=== PATIENT | female | born 1960 | race Caucasian/White ===

== ENCOUNTER 2016-06-03 13:00 | Inpatient (IN) | payer OTHER ==
[~2016-06-03] VITALS: Ht 149.9 cm; Wt 63.0 kg
[2016-07-23] VITALS (29 sets, daily range): BP systolic 109–180; BP diastolic 55–105; PULSE 64–102; RESP 10–20; Ht 149.9 cm; Wt 63.0 kg
[2016-07-23] MEDS ORDERED: metroNIDAZOLE 500 MG/100 ML NS IVPB ONE (07:00)
[2016-07-23] MEDS ORDERED: CEFAZOLIN 1 GM INJ ONE (07:00)
[2016-07-23] MEDS ORDERED: DESFLURANE 15 MIN ONE (07:00)
[2016-07-23] MEDS ORDERED: METF500T4 PO (15:14)
[2016-07-23] MEDS ORDERED: PROM6.2514 PO (15:15)
[2016-07-23] MEDS ORDERED: BUPIVACAINE 0.5% ON-Q-PUMP 270 ML ONE (15:49)
--- NOTE | 2016-07-23 16:29 | HPN ---
Date/Time of Note Date/Time of Note DATE: 07/23/16 TIME: 16:28 Interval H&P Admission Note Pt. seen H&P reviewed: No system changes JOSE R HOPKINS M.D. Jul 23, 2016 16:29
[2016-07-23] MEDS ORDERED: FENTAnyl 50 MCG/ML VIAL ONE (16:43)
[2016-07-23] MEDS ORDERED: PROPOFOL 100 ML ONE (17:10)
[2016-07-23] MEDS ORDERED: NEOSTIGMINE 3 MG/3 ML SYRINGE ONE (17:10)
[2016-07-23] MEDS ORDERED: ROCURONIUM 50 MG INJ ONE (17:10)
[2016-07-23] MEDS ORDERED: SUCCINYLCHOLINE CHLORIDE 100 MG/5 ML SYG IV ONE (17:10)
[2016-07-23] MEDS ORDERED: GLYCOPYRROLATE 1 MG INJ ONE (17:10)
[2016-07-23] MEDS ORDERED: LIDOCAINE 2% (SDV) 5 ML INJ ONE (17:10)
[2016-07-23] MEDS ORDERED: BUPIVACAINE 0.5% (SDV) 30 ML INJ ONE (18:30)
[2016-07-23] MEDS ORDERED: ROPIVACAINE 0.5 % 30 ML VIAL ONE (18:41)
[2016-07-23] MEDS: LACTATED RINGER'S 1,000 ML IV SCH ×2 (18:50→22:46)
[2016-07-23] MEDS ORDERED: NALOXONE (0.4 MG/ML) INJ IV PRN (19:00)
[2016-07-23] MEDS ORDERED: DIPHENHYDRAMINE 50 MG INJ IV PRN ×2 (19:00→19:30)
[2016-07-23] MEDS ORDERED: CEPASTAT LOZENGE MT PRN (19:00)
[2016-07-23] MEDS ORDERED: ONDANSETRON 4 MG INJ IV PRN ×2 (19:00→19:30)
[2016-07-23] MEDS ORDERED: HYDROmorphONE (0.2 MG/ML) 10ML SYG IV ONE (19:17)
[2016-07-23] MEDS ORDERED: ONDANSETRON 4 MG INJ ONE (19:17)
[2016-07-23] MEDS ORDERED: METOCLOPRAMIDE 10 MG INJ IV PRN (19:30)
[2016-07-23] MEDS ORDERED: MEPERIDINE 25 MG INJ IV PRN (19:30)
[2016-07-23] MEDS ORDERED: HYDROmorphONE (0.2 MG/ML) 10ML SYG IV PRN ×2 (19:30)
[2016-07-23] MEDS ORDERED: FENTAnyl 50 MCG/ML VIAL IV PRN (19:30)
[2016-07-23] MEDS: HYDROmorphONE (0.2 MG/ML) 10ML SYG IV PRN ×2 (19:39→19:49)
[2016-07-23 19:46] LABS: ADD SCAN DIFF NO
[2016-07-23 19:47] LABS: BASOPHIL # 0.1 10^3/ul (0.0-0.1); BASOPHILS % 0.3 % (0.0-2.0); EOSINOPHILS % 0.2 % (0.0-7.0); HEMATOCRIT 36.2 % (37.0-47.0); HEMOGLOBIN 11.3 g/dl (12.0-16.0); LYMPHOCYTES # 1.9 10^3/ul (0.8-2.9); LYMPHOCYTES % 11.7 % (15.0-51.0); MEAN CORPUSCULAR HEMOGLOBIN 27.5 pg (29.0-33.0); MEAN CORPUSCULAR HGB CONC 31.2 g/dl (32.0-37.0); MEAN CORPUSCULAR VOLUME 88.1 fl (82.0-101.0); MEAN PLATELET VOLUME 9.2 fl (7.4-10.4); MONOCYTE # 0.8 10^3/ul (0.3-0.9); MONOCYTES % 4.8 % (0.0-11.0); NEUTROPHIL # 13.4 10^3/ul (1.6-7.5); NEUTROPHILS % 82.6 % (39.0-77.0); PLATELET COUNT 390 10^3/UL (140-415); RED BLOOD COUNT 4.11 10^6/ul (4.20-5.40); RED CELL DISTRIBUTION WIDTH 15.9 % (11.5-14.5); WHITE BLOOD COUNT 16.2 10^3/ul (4.8-10.8)
[2016-07-23] MEDS ORDERED: hydrALAzine 20 MG INJ IV PRN (20:00)
[2016-07-23] MEDS ORDERED: DEXTROSE 50% 50 ML SYRINGE IV PRN ×2 (20:00)
[2016-07-23] MEDS ORDERED: GLUCAGON 1 MG INJ IM PRN (20:00)
[2016-07-23] MEDS ORDERED: LABETALOL HCL 20MG INJ IV PRN (20:00)
[2016-07-23] MEDS ORDERED: GLUCOSE GEL 15 GRAM TUBE PO PRN ×2 (20:00)
[2016-07-23] MEDS ORDERED: GLUCOSE GEL 15 GRAM TUBE BUCCAL PRN (20:00)
[2016-07-23 20:07] LABS: ADD UMIC YES; URINE COLOR LT. YELLOW (YELLOW)
[2016-07-23 20:08] LABS: URINE BILIRUBIN (Dip) NEGATIVE (NEGATIVE); URINE BLOOD (Dip) 1+ (NEGATIVE); URINE GLUCOSE (Dip) NEGATIVE (NEGATIVE); URINE KETONES (Dip) 1+ (NEGATIVE); URINE NITRITE (Dip) NEGATIVE (NEGATIVE); URINE TOTAL PROTEIN (Dip) 1+ (NEGATIVE); URINE UROBILINOGEN (Dip) 0.2 E.U./dL (0.1-1.0)
[2016-07-23 20:09] LABS: URINE LEUKOCYTE ESTERASE (Dip) NEGATIVE (NEGATIVE)
[2016-07-23] MEDS: ACETAMINOPHEN 1000MG/100ML IV 100 ML IVPB SCH (20:10)
[2016-07-23 20:20] LABS: CALCIUM 8.6 mg/dl (8.4-10.2); CREATININE 0.69 mg/dl (0.44-1.00); POTASSIUM 3.4 mmol/L (3.5-5.1)
[2016-07-23 20:23] LABS: SQUAMOUS EPITHELIAL CELL,UR FEW
[2016-07-23] MEDS ORDERED: HYDROmorphONE 0.2 MG/ML PCA ONE (20:37)
[2016-07-23] MEDS: HYDROmorphONE 0.2 MG/ML PCA IV SCH (20:42)
--- NOTE | 2016-07-23 20:46 | OPR ---
DATE OF OPERATION: 07/23/2016 PROCEDURE PERFORMED: Abdominal rectopexy and sigmoid resection, placement of ON -Q pain pump, proctosigmoidoscopy. PREOPERATIVE DIAGNOSIS: Rectal prolapse. POSTOPERATIVE DIAGNOSIS: Rectal prolapse. SURGEON: Cy Bradley MD REINFORCER: Shabbir Gamino MD ANESTHESIOLOGIST: Mino Norris MD POSITION: Lithotomy. ESTIMATED BLOOD LOSS: Less than 50 mL. URINE OUTPUT: About 100 mL. FINDINGS: 1. Redundant sigmoid colon. 2. Mobile mesorectum. 3. Patulous anus. INDICATIONS: This is a 56-year-old woman who came to me after multiple perianal operations for hemorrhoids. On exam, the patient had full-thickness rectal prolapse. She had a patulous anus and incontinence. I discussed a perineal and abdominal approaches. The patient wanted the abdominal approach. I discussed the risks and benefits of an abdominal rectopexy and sigmoid resection, proctosigmoidoscopy, including bleeding, infection, damage to surrounding structures, fecal incontinence, recurrence, leak. The patient was agreeable to the procedure. The patient got medical clearance and we went to the OR. PROCEDURE IN DETAIL: After obtaining consent, the patient was brought to the operating room. After induction of general anesthesia, the patient was gently placed in the lithotomy position. SCDs were applied and a Mata catheter was placed under sterile conditions. The pressure points were carefully padded. We The patient was prepped and draped in the usual sterile fashion. I began by doing a Pfannenstiel incision over her old Pfannenstiel incision using a knife. The subcu tissues were taken down using electrocautery until the fascia was identified. The fascia was identified and incised crosswise. Then flaps were made superiorly and inferiorly using electrocautery. The midline was identified and sharply incised. Once we were inside the abdomen, there was no damage to the small bowel or any other structures. Using electrocautery, we incised up and down the midline. We then placed an Cheng wound protector. Using 2 warm lap pads we packed the small bowel and omentum into the right-upper quadrant. The sigmoid colon was obviously redundant. We found a point in the sigmoid that would make a good anastomosis to the rectum and we divided the colon using a Contour stapler. We identified the left ureter. We then, using a LigaSure Impact took down the mesentery to the top of the rectum. This was done right along the margin of the bowel. We then used the distal sigmoid and rectum as a handle and then got into the presacral space from the right side. Care was taken not to incise the superior rectal artery of the right ureter. Once we entered the presacral space using electrocautery, we dissected down to the tip of the coccyx. There was a small amount of blood but no active bleeding. A hole was made through the mesorectum to the left side so we could pass our stitch. We then identified the sacral promontory. Then we placed two 0 Vicryl sutures through it and placed them aside; one on the right side and one through the incision in the mesorectum to the left side. We then identified the top of the rectum so that it would fit snugly into the presacral space. We divided it using a Contour stapler. The sigmoid colon was passed to pathology. Hemostasis appeared achieved. We then went about doing our anastomosis. We used an automated pursestring device on the proximal portion and placed a 29 anvil from the EEA stapler. This was secured and then tucked away into the left -upper quadrant. Then Dr. Gamino went below. Dr. Gamino placed some sizers into the rectum and there appeared to be a valve keeping us from getting the stapler out. We incised some mesorectum and then used the Contour stapler to approximately 2 cm more of the rectum. We then easily placed EEA stapler to the end and was able to pass the spike at the staple line. I took the proximal end with the anvil down and easily attached it to the spike. The stapler was closed with any intervening tissue. The staple was fired. Dr. Gamino got 2 good donuts. He then placed an rigid sigmoidoscope in the patient's anus and I placed warm water into the pelvis. I clamped off the proximal sigmoid using fingers and Dr. Gamino was able to insufflate the rectum and sigmoid at anastomosis. He pumped it and there were no bubbles. He inspected and the anastomosis appeared to be complete with no obvious bleeding. He then removed the rigid sigmoidoscope and scrubbed back in. We then irrigated again and reexamined the pelvis. There was no obvious bleeding. We then replaced the omentum and took out the wound protector and began our closure. We closed the peritoneum using a running 2-0 Vicryl suture. We then placed a single ON-Q catheter through the fascia on the right side into the space between the anterior fascia and the muscle. We then closed the fascia using a 0 PDS, double-looped suture. We then irrigated the wound and closed the subcu tissues three interrupted 2-0Vicryl sutures. We then closed the skin using a 4- 0 Monocryl suture. We primed the ON-Q pump, attached the catheter and the procedure was terminated. The left ureter identified at the end of the case without damage. The patient tolerated the procedure well. The patient was extubated in the OR and transported to the PACU in good condition. I discussed the findings with the family. I called the hospitalist to follow the patient for medical issues. Dictated By: CY ROYAL/LEIGH Conf#: [id number] DID#: [id number] MTDD
[2016-07-23] MEDS: CEFAZOLIN 1 GM/50 ML (PMX) 50 ML IVPB SCH (22:10)
[2016-07-23] MEDS: INSULIN ASPART [NOVOLOG] 3 ML PEN SC SCH (22:38)
[2016-07-23] MEDS: metroNIDAZOLE 500 MG/NS (PMX) 100 ML IVPB SCH (22:44)
[2016-07-23] MEDS ORDERED: POTASSIUM CHLORIDE 20 MEQ in SOD CHLORIDE 0.9% 100 ML IVPB ONE (23:30)
[2016-07-24 00:05] VITALS: BP 141/62; PULSE 82; RESP 19
[2016-07-24] MEDS: ACCU-CHEK XX SCH (01:44)
[2016-07-24] MEDS: ACETAMINOPHEN 1000MG/100ML IV 100 ML IVPB SCH ×4 (01:45→20:18)
[2016-07-24] MEDS: LACTATED RINGER'S 1,000 ML IV SCH ×4 (02:50→20:19)
[2016-07-24 05:03] LABS: ADD SCAN DIFF NO
[2016-07-24 05:10] LABS: BASOPHILS % 0.1 % (0.0-2.0); HEMATOCRIT 32.9 % (37.0-47.0); HEMOGLOBIN 10.4 g/dl (12.0-16.0); LYMPHOCYTES # 0.7 10^3/ul (0.8-2.9); LYMPHOCYTES % 7.8 % (15.0-51.0); MEAN CORPUSCULAR HEMOGLOBIN 27.9 pg (29.0-33.0); MEAN CORPUSCULAR HGB CONC 31.6 g/dl (32.0-37.0); MEAN CORPUSCULAR VOLUME 88.2 fl (82.0-101.0); MEAN PLATELET VOLUME 9.6 fl (7.4-10.4); MONOCYTE # 0.5 10^3/ul (0.3-0.9); MONOCYTES % 5.8 % (0.0-11.0); NEUTROPHILS % 86.1 % (39.0-77.0); PLATELET COUNT 382 10^3/UL (140-415); RED BLOOD COUNT 3.73 10^6/ul (4.20-5.40); WHITE BLOOD COUNT 9.3 10^3/ul (4.8-10.8)
[2016-07-24 05:11] LABS: POTASSIUM 3.9 mmol/L (3.5-5.1)
[2016-07-24] MEDS: CEFAZOLIN 1 GM/50 ML (PMX) 50 ML IVPB SCH (05:12)
[2016-07-24 05:13] LABS: CREATININE 0.6 mg/dl (0.44-1.00)
[2016-07-24 05:14] LABS: CALCIUM 8.7 mg/dl (8.4-10.2)
[2016-07-24] MEDS: metroNIDAZOLE 500 MG/NS (PMX) 100 ML IVPB SCH (05:58)
--- NOTE | 2016-07-24 06:48 | CONS ---
DATE OF ADMISSION: 07/23/2016 DATE OF CONSULTATION: 07/23/2016 REASON FOR CONSULTATION: Medical management. The patient is a 56-year-old female with a history of asthma, diabetes, hysterectomy, and multiple p erianal surgeries for hemorrhoids, who was admitted status post sigmoid resection for rectal prolaps e. A consult was placed for medical management. Currently the patient looks comfortable, in fact i nitially she was sleeping but arousable. She stated her pain is controlled. She denied any chest p ain, no sign of asthma exacerbation. Denied shortness of breath, fever, chills. Her vitals are wit hin acceptable range. When she came in initially she had a WBC of 16,000, hemoglobin 11.3 and a pot assium of 3.4. Otherwise her basic CBC and BMP are within acceptable range. REVIEW OF SYSTEMS: A 12-point review of systems was performed and is negative except as mentioned i n the HPI. PAST MEDICAL HISTORY: As per HPI. PAST SURGICAL HISTORY: 1. Hysterectomy. 2. Multiple perianal surgeries for hemorrhoids. 3. She just had a sigmoid resection. SOCIAL HISTORY: Denied a history of tobacco, alcohol or illicit drug use. ALLERGIES: NO KNOWN DRUG ALLERGIES. HOME MEDICATIONS: 1. Metformin. 2. Promethazine. PHYSICAL EXAMINATION: VITAL SIGNS: Stable. GENERAL: In no acute distress, initially sleeping but arousable. Looks comfortable. HEENT: No obvious head deformity. Pupils are reactive to light. Extraocular muscles intact. CARDIOVASCULAR: Regular rate and rhythm. No extra sounds. LUNGS: Clear anteriorly. ABDOMEN: Soft. There is some discomfort to deep palpation diffusely, but without guarding, rebound tenderness or rigidity. EXTREMITIES: No edema. LABORATORY: Pertinent positives as mentioned in the HPI. IMPRESSION: 1. Rectal prolapse, status post sigmoid resection. 2. Diabetes. 3. History of asthma. 4. Leukocytosis. 5. Mild hypokalemia. 6. Normocytic anemia. PLAN: Will continue her current medical management, including her antibiotic and pain management. C ontinue insulin while in-house for her diabetes. Will correct electrolytes as needed and as such, s he will receive a dose of potassium. Follow up hemoglobin closely post-surgery. Will send a ferrit in and iron profile to see if she has iron deficiency. Currently no sign of asthma exacerbation, bu t she will receive breathing treatments as needed Further workup and management will be per clinical course. Dictated By: JOSE R PLAZA/LEIGH Conf#: [id number] DID#: [id number]
[2016-07-24 07:00] VITALS: BP 116/59; RESP 18
[2016-07-24 07:07] LABS: IRON 30 ug/dl (35-150)
[2016-07-24 07:16] LABS: TOTAL IRON BINDING CAPACITY 416 ug/dl (241-421)
[2016-07-24] MEDS: INSULIN ASPART [NOVOLOG] 3 ML PEN SC SCH ×4 (07:50→21:00)
[2016-07-24] MEDS ORDERED: ENOXAPARIN 40 MG/0.4 ML SYG SC SCH (09:00)
--- NOTE | 2016-07-24 09:03 | PN ---
Date/Time of Note Date/Time of Note DATE: 07/24/16 TIME: 08:58 Assessment/Plan VTE Prophylaxis VTE Prophylaxis Intervention: ambulation, LMWH Lines/Catheters IV Catheter Type (from Nrsg): Peripheral IV Urinary Cath still in place: Yes Reason Cath still needed: other (indicate) (To remove today if ambulatory) Assessment/Plan Chief Complaint/Hosp Course 55YO Woman h/o rectal prolapse s/p abdominal rectopexy and sigmoid resection now POD1. Doing well, denies CP/SOB/F/C/NV. No BM/F yet. Wants to drink and walk. On exam, appears well, VS OK, labs OK (Hct 33, was anemia and has been on IVF - good urine output, no peritoneal signs, very unlikely bleeding), abdomen soft, appropriately TTP at wound, ONQ in place. Plan is clear liquid diet, OOB, browne removed if ambulatory, start Lovenox and Toradol. Wean IVF if tolerating clears. Appreciate medicine following. Problems: Subjective 24 Hr Interval Summary Free Text/Dictation Pt POD1 abdominal rectopexy, sigmoid resection. Doing well. Denies NV/CP/SOB/F /C. Reports abdominal pain controlled with pain meds. Not OOB yet. No BM/F. Wants to walk and drink. Respiratory: no complaints Cardiovascular: no complaints Gastrointestinal: pain Exam/Review of Systems Vital Signs Vitals Vital Signs Date Time Temp Pulse Resp B/P Pulse Ox O2 Delivery O2 Flow Rate FiO2 07/24/16 07:00 97.5 78 18 116/59 98 07/24/16 00:05 Nasal Cannula 1.0 Intake and Output 07/23/16 07/23/16 07/24/16 15:00 23:00 07:00 Intake Total 1865 ml 866 ml Output Total 140 ml 500 ml Balance 1725 ml 366 ml Exam Constitutional: alert, oriented Respiratory: clear to auscultation Cardiovascular: regular rate and rhythm Gastrointestinal: soft, tender (appropriate; wound C/D/I, ONQ in place) Results Result Diagram: 07/24/16 0415 07/24/16 0415 Results 24 hrs Laboratory Tests Test 07/23/16 16:13 07/23/16 19:03 07/23/16 19:40 07/23/16 20:51 Bedside Glucose 95 164 Urine Color LT. YELLOW Urine Clarity CLEAR Urine pH 6.5 Urine Specific [place] 1.015 Urine Ketones 1+ H Urine Nitrite NEGATIVE Urine Bilirubin NEGATIVE Urine Urobilinogen 0.2 E.U./dL Urine Leukocyte Esterase NEGATIVE Urine Microscopic RBC 2-5 Urine Microscopic WBC 0-2 Urine Squamous Epithelial Cells FEW Urine Hemoglobin 1+ H Urine Glucose NEGATIVE Urine Total Protein 1+ H White Blood Count 16.2 H Red Blood Count 4.11 L Hemoglobin 11.3 L Hematocrit 36.2 L Mean Corpuscular Volume 88.1 Mean Corpuscular Hemoglobin 27.5 L Mean Corpuscular Hemoglobin Concent 31.2 L Red Cell Distribution Width 15.9 H Platelet Count 390 Mean Platelet Volume 9.2 Neutrophils % 82.6 H Lymphocytes % 11.7 L Monocytes % 4.8 Eosinophils % 0.2 Basophils % 0.3 Nucleated Red Blood Cells % 0.0 Neutrophils # 13.4 H Lymphocytes # 1.9 Monocytes # 0.8 Eosinophils # 0.0 Basophils # 0.1 Nucleated Red Blood Cells # 0.0 Sodium Level 138 Potassium Level 3.4 L Chloride Level 102 Carbon Dioxide Level 28 Anion Gap 11 Blood Urea Nitrogen 8 Creatinine 0.69 Glucose Level 166 Calcium Level 8.6 Test 07/23/16 22:14 07/24/16 01:44 07/24/16 04:15 07/24/16 07:54 Bedside Glucose 190 160 127 White Blood Count 9.3 # Red Blood Count 3.73 L Hemoglobin 10.4 L Hematocrit 32.9 L Mean Corpuscular Volume 88.2 Mean Corpuscular Hemoglobin 27.9 L Mean Corpuscular Hemoglobin Concent 31.6 L Red Cell Distribution Width 16.0 H Platelet Count 382 Mean Platelet Volume 9.6 Neutrophils % 86.1 H Lymphocytes % 7.8 L Monocytes % 5.8 Eosinophils % 0.0 Basophils % 0.1 Nucleated Red Blood Cells % 0.0 Neutrophils # 8.0 H Lymphocytes # 0.7 L Monocytes # 0.5 Eosinophils # 0.0 Basophils # 0.0 Nucleated Red Blood Cells # 0.0 Sodium Level 137 Potassium Level 3.9 Chloride Level 101 Carbon Dioxide Level 28 Anion Gap 12 Blood Urea Nitrogen 9 Creatinine 0.60 Glucose Level 135 Calcium Level 8.7 Iron Level 30 L Total Iron Binding Capacity 416 Percent Iron Saturation 7 L Ferritin 7.4 L Medications Medications Current Medications Diphenhydramine HCl (Benadryl) 25 mg Q6H PRN IV ITCHING Last administered on 23:53; Admin Dose 25 MG; Start 07/23/16 at 19:00 Ondansetron HCl 4 mg 4 mg Q6H PRN IV NAUSEA AND/OR VOMITING; Start 07/23/16 at 19:00 Lactated Ringer's (Lr) 1,000 ml @ 125 mls/hr Q8H IV Last administered on 22:46; Admin Dose 125 MLS/HR; Start 07/23/16 at 18:50 Phenol (Cepastat Lozenge) 1 lozenge PRN PRN MT SORE THROAT; Start 07/23/16 at 19:00 Naloxone HCl (Narcan) 0.2 mg Q2M PRN IV RR 8 BREATHS/MIN OR LESS; Start at 19:00 Hydromorphone HCl (Dilaudid CHARTER PILOT) Q4PCA IV Last administered on 07/23/16 20:42 ; Admin Dose 6 MG; Start 07/23/16 at 19:00 Diagnostic Test (Pha) 1 ea 1 ea 02 XX Last administered on 07/24/16 01:44; Admin Dose 1 EA; Start 07/24/16 at 02:00 Acetaminophen (Ofirmev 1000mg/ 100ml Iv) 100 ml @ 400 mls/hr Q6H IVPB Last administered on 07/24/16 08:40; Admin Dose 400 MLS/HR; Start 07/23/16 at 19:30 Miscellaneous Information 1 ea NOTE XX ; Start 07/23/16 at 20:00 Glucose (Glutose) 15 gm Q15M PRN PO DECREASED GLUCOSE; Start 07/23/16 at 20:00 Glucose (Glutose) 22.5 gm Q15M PRN PO DECREASED GLUCOSE; Start 07/23/16 at 20: 00 Dextrose (D50w Syringe) 25 ml Q15M PRN IV DECREASED GLUCOSE; Start 07/23/16 at 20:00 Dextrose (D50w Syringe) 50 ml Q15M PRN IV DECREASED GLUCOSE; Start 07/23/16 at 20:00 Glucagon (Glucagen) 1 mg Q15M PRN IM DECREASED GLUCOSE; Start 07/23/16 at 20:00 Glucose (Glutose) 15 gm Q15M PRN BUCCAL DECREASED GLUCOSE; Start 07/23/16 at 20 :00 Enoxaparin Sodium (Lovenox) 40 mg DAILY SC ; Start 07/24/16 at 09:00; Status UNV Ketorolac Tromethamine (Toradol) 15 mg Q6H PRN IV PAIN; Start 07/24/16 at 09:00 ; Stop 07/27/16 at 08:59; Status UNV JOSE R HOPKINS M.D. Jul 24, 2016 09:03
[2016-07-24] MEDS: HYDROmorphONE 0.2 MG/ML PCA IV SCH (16:34)
[2016-07-24 19:55] VITALS: BP 134/78; RESP 18
[2016-07-24] MEDS: FERROUS SULFATE (EC) 325 MG TAB PO SCH (21:39)
[2016-07-25] MEDS: ACCU-CHEK XX SCH ×2 (00:02→08:25)
[2016-07-25] MEDS: ACETAMINOPHEN 1000MG/100ML IV 100 ML IVPB SCH (02:03)
[2016-07-25] MEDS: LACTATED RINGER'S 1,000 ML IV SCH (02:04)
[2016-07-25 05:50] LABS: ADD SCAN DIFF NO
[2016-07-25 05:53] LABS: BASOPHILS % 0.6 % (0.0-2.0); EOSINOPHILS # 0.2 10^3/ul (0.0-0.5); EOSINOPHILS % 3.3 % (0.0-7.0); HEMATOCRIT 30.1 % (37.0-47.0); HEMOGLOBIN 9.4 g/dl (12.0-16.0); LYMPHOCYTES # 1.6 10^3/ul (0.8-2.9); LYMPHOCYTES % 23.2 % (15.0-51.0); MEAN CORPUSCULAR HEMOGLOBIN 27.6 pg (29.0-33.0); MEAN CORPUSCULAR HGB CONC 31.2 g/dl (32.0-37.0); MEAN CORPUSCULAR VOLUME 88.3 fl (82.0-101.0); MEAN PLATELET VOLUME 9.8 fl (7.4-10.4); MONOCYTE # 0.6 10^3/ul (0.3-0.9); MONOCYTES % 8.3 % (0.0-11.0); NEUTROPHIL # 4.6 10^3/ul (1.6-7.5); NEUTROPHILS % 64.3 % (39.0-77.0); PLATELET COUNT 369 10^3/UL (140-415); RED BLOOD COUNT 3.41 10^6/ul (4.20-5.40); RED CELL DISTRIBUTION WIDTH 16.4 % (11.5-14.5); WHITE BLOOD COUNT 7.1 10^3/ul (4.8-10.8)
[2016-07-25 06:08] LABS: CALCIUM 8.6 mg/dl (8.4-10.2); CREATININE 0.55 mg/dl (0.44-1.00); POTASSIUM 3.5 mmol/L (3.5-5.1)
[2016-07-25 07:00] VITALS: BP 139/70; RESP 18
[2016-07-25] MEDS: INSULIN ASPART [NOVOLOG] 3 ML PEN SC SCH ×4 (07:50→20:57)
--- NOTE | 2016-07-25 08:21 | PN ---
Date/Time of Note Date/Time of Note DATE: 07/25/16 TIME: 08:16 Assessment/Plan VTE Prophylaxis VTE Prophylaxis Intervention: ambulation, SCD's VTE Contraindication Reason: bleeding Lines/Catheters IV Catheter Type (from Nrs): Peripheral IV Urinary Cath still in place: No Assessment/Plan Chief Complaint/Hosp Course 55YO Woman h/o rectal prolapse s/p abdominal rectopexy and sigmoid resection now POD2. Doing well, denies CP/SOB/F/C/NV. Wants to eat. Passing gas and urinating well. VS OK. Abd soft, appropriately TTP. Wound C/D/I. Labs OK - anemic but probably due to IVF. Plan is full liquid diet, continue ambulation. D/C IVF and FRAMER. Start PRN [place] and dilaudid - encourage to use Toradol first. D/C IV Tylenol. Hopeful D/C tomorrow afternoon if tolerating regular diet. Hold Lovenox for now as pt anemic and passed some blood from below - is ambulatory and using SCDs. Problems: Subjective 24 Hr Interval Summary Free Text/Dictation Pt states she's OK. Has been ambulating, urinating, passing gas. Pain controlled with meds. Wants to eat. Denies NV/F/C/SOB/CP. Constitutional: no complaints Cardiovascular: no complaints Gastrointestinal: pain Exam/Review of Systems Vital Signs Vitals Vital Signs Date Time Temp Pulse Resp B/P Pulse Ox O2 Delivery O2 Flow Rate FiO2 07/25/16 07:00 98.2 85 18 139/70 98 07/24/16 00:05 Nasal Cannula 1.0 Intake and Output 07/24/16 07/24/16 07/25/16 15:00 23:00 07:00 Intake Total 825 ml 1977 ml 1525 ml Output Total 350 ml Balance 825 ml 1627 ml 1525 ml Exam Constitutional: alert, oriented Respiratory: clear to auscultation Cardiovascular: regular rate and rhythm Gastrointestinal: soft, tender (appropriate; wound C/D/I, ONQ in place) Results Result Diagram: 07/25/16 0432 07/25/16 0432 Results 24 hrs Laboratory Tests Test 07/24/16 11:33 07/24/16 16:28 07/24/16 21:33 07/25/16 04:32 Bedside Glucose 119 124 149 White Blood Count 7.1 # Red Blood Count 3.41 L Hemoglobin 9.4 L Hematocrit 30.1 L Mean Corpuscular Volume 88.3 Mean Corpuscular Hemoglobin 27.6 L Mean Corpuscular Hemoglobin Concent 31.2 L Red Cell Distribution Width 16.4 H Platelet Count 369 Mean Platelet Volume 9.8 Neutrophils % 64.3 Lymphocytes % 23.2 Monocytes % 8.3 Eosinophils % 3.3 Basophils % 0.6 Nucleated Red Blood Cells % 0.0 Neutrophils # 4.6 Lymphocytes # 1.6 Monocytes # 0.6 Eosinophils # 0.2 Basophils # 0.0 Nucleated Red Blood Cells # 0.0 Sodium Level 136 Potassium Level 3.5 Chloride Level 104 Carbon Dioxide Level 28 Anion Gap 8 Blood Urea Nitrogen 4 L Creatinine 0.55 Glucose Level 95 # Calcium Level 8.6 Test 07/25/16 07:57 Bedside Glucose 92 Medications Medications Current Medications Diphenhydramine HCl (Benadryl) 25 mg Q6H PRN IV ITCHING Last administered on 23:53; Admin Dose 25 MG; Start 07/23/16 at 19:00 Ondansetron HCl (Zofran Inj) 4 mg Q6H PRN IV NAUSEA AND/OR VOMITING; Start at 19:00 Phenol (Cepastat Lozenge) 1 lozenge PRN PRN MT SORE THROAT; Start 07/23/16 at 19:00 Diagnostic Test (Pha) (Accu-Chek) 1 ea 02 XX Last administered on 07/24/16 01: 44; Admin Dose 1 EA; Start 07/24/16 at 02:00 Miscellaneous Information 1 ea NOTE XX ; Start 07/23/16 at 20:00 Glucose (Glutose) 15 gm Q15M PRN PO DECREASED GLUCOSE; Start 07/23/16 at 20:00 Glucose (Glutose) 22.5 gm Q15M PRN PO DECREASED GLUCOSE; Start 07/23/16 at 20: 00 Dextrose (D50w Syringe) 25 ml Q15M PRN IV DECREASED GLUCOSE; Start 07/23/16 at 20:00 Dextrose (D50w Syringe) 50 ml Q15M PRN IV DECREASED GLUCOSE; Start 07/23/16 at 20:00 Glucagon (Glucagen) 1 mg Q15M PRN IM DECREASED GLUCOSE; Start 07/23/16 at 20:00 Glucose (Glutose) 15 gm Q15M PRN BUCCAL DECREASED GLUCOSE; Start 07/23/16 at 20 :00 Ketorolac Tromethamine (Toradol) 15 mg Q6H PRN IV PAIN; Start 07/24/16 at 09:00 ; Stop 07/27/16 at 08:59 Ferrous Sulfate (Ferrous Sulfate (Ec)) 325 mg TID PO Last administered on t 21:39; Admin Dose 325 MG; Start 07/24/16 at 21:00 Acetaminophen/ Hydrocodone Bitart ([place] (5/325)) 1-2 tabs Q4-6H PRN pain Q4H PRN PO PAIN LEVEL 4-6; Start 07/25/16 at 08:30; Status UNV Hydromorphone HCl (Dilaudid) 0.5 mg Q4H PRN IV PAIN; Start 07/25/16 at 08:30; Status UNV JOS ER HOPKINS M.D. Jul 25, 2016 08:20
[2016-07-25] MEDS: FERROUS SULFATE (EC) 325 MG TAB PO SCH ×3 (08:25→20:51)
[2016-07-25] MEDS ORDERED: HYDROmorphONE 1 MG/ML SYG IV PRN (08:30)
[2016-07-25] MEDS ORDERED: HYDROCODONE/APAP (5/325) TAB PO PRN ×2 (08:30→09:00)
[2016-07-25] MEDS ORDERED: KETOROLAC 30 MG INJ IV STA (11:50)
[2016-07-25] MEDS: KETOROLAC 15 MG INJ IV PRN ×2 (12:30→20:51)
--- NOTE | 2016-07-25 16:27 | PN ---
Date/Time of Note Date/Time of Note DATE: 07/25/16 TIME: 16:24 Assessment/Plan VTE Prophylaxis VTE Prophylaxis Intervention: SCD's Lines/Catheters IV [facility] Type [facility] Peripheral IV Urinary Cath still in place: No Assessment/Plan Chief Complaint/Hosp Course Assessment and plan 1. Rectal prolapse status post sigmoid resection. Continue postop care. Analgesics as needed. Diet per surgeon. 2. Diabetes. Continue insulin regimen. Adjust as needed 3. History of asthma. No active bronchospasm at this time. Bronchodilators as needed 4. Hypokalemia. Will monitor and replete as needed 5. Iron deficiency anemia. Continue on iron supplement Disposition and plan: Continue analgesics. Appears better. DC planning Discussed plan of care with Dr. Sykes Problems: Subjective 24 Hr Interval Summary Free Text/Dictation No apparent distress seen at this time. Comfortable at present Exam/Review of Systems Vital Signs Vitals Vital Signs Date Time Temp Pulse Resp B/P Pulse Ox O2 Delivery O2 Flow Rate FiO2 07/25/16 09:07 16 07/25/16 07:00 98.2 85 139/70 98 07/24/16 00:05 Nasal Cannula 1.0 Intake and Output 07/24/16 07/24/16 07/25/16 15:00 23:00 07:00 Intake Total 825 ml 1977 ml 1525 ml Output Total 350 ml Balance 825 ml 1627 ml 1525 ml Exam Constitutional: alert, oriented Psych: nl mood/affect Head: normocephalic Eyes: nl conjunctiva Neck: supple Respiratory: clear to auscultation Cardiovascular: regular rate and rhythm Gastrointestinal: soft, tender (Minimally tender upon palpation status post surgical intervention) Musculoskeletal: nl extremities to inspection Extremities: normal pulses Results Result Diagram: 07/25/16 0432 07/25/16 0432 Results 24 hrs Laboratory Tests Test 07/24/16 16:28 07/24/16 21:33 07/25/16 04:32 07/25/16 07:57 Bedside Glucose 124 149 92 White Blood Count 7.1 # Red Blood Count 3.41 L Hemoglobin 9.4 L Hematocrit 30.1 L Mean Corpuscular Volume 88.3 Mean Corpuscular Hemoglobin 27.6 L Mean Corpuscular Hemoglobin Concent 31.2 L Red Cell Distribution Width 16.4 H Platelet Count 369 Mean Platelet Volume 9.8 Neutrophils % 64.3 Lymphocytes % 23.2 Monocytes % 8.3 Eosinophils % 3.3 Basophils % 0.6 Nucleated Red Blood Cells % 0.0 Neutrophils # 4.6 Lymphocytes # 1.6 Monocytes # 0.6 Eosinophils # 0.2 Basophils # 0.0 Nucleated Red Blood Cells # 0.0 Sodium Level 136 Potassium Level 3.5 Chloride Level 104 Carbon Dioxide Level 28 Anion Gap 8 Blood Urea Nitrogen 4 L Creatinine 0.55 Glucose Level 95 # Calcium Level 8.6 Test 07/25/16 11:53 Bedside Glucose 157 Medications Medications Current Medications Diphenhydramine HCl (Benadryl) 25 mg Q6H PRN IV ITCHING Last administered on 23:53; Admin Dose 25 MG; Start 07/23/16 at 19:00 Ondansetron HCl (Zofran Inj) 4 mg Q6H PRN IV NAUSEA AND/OR VOMITING; Start at 19:00 Phenol (Cepastat Lozenge) 1 lozenge PRN PRN MT SORE THROAT; Start 07/23/16 at 19:00 Diagnostic Test (Pha) (Accu-Chek) 1 ea 02 XX Last administered on 07/25/16 08: 25; Admin Dose 1 EA; Start 07/24/16 at 02:00 Miscellaneous Information 1 ea NOTE XX ; Start 07/23/16 at 20:00 Glucose (Glutose) 15 gm Q15M PRN PO DECREASED GLUCOSE; Start 07/23/16 at 20:00 Glucose (Glutose) 22.5 gm Q15M PRN PO DECREASED GLUCOSE; Start 07/23/16 at 20: 00 Dextrose (D50w Syringe) 25 ml Q15M PRN IV DECREASED GLUCOSE; Start 07/23/16 at 20:00 Dextrose (D50w Syringe) 50 ml Q15M PRN IV DECREASED GLUCOSE; Start 07/23/16 at 20:00 Glucagon (Glucagen) 1 mg Q15M PRN IM DECREASED GLUCOSE; Start 07/23/16 at 20:00 Glucose (Glutose) 15 gm Q15M PRN BUCCAL DECREASED GLUCOSE; Start 07/23/16 at 20 :00 Ketorolac Tromethamine (Toradol) 15 mg Q6H PRN IV PAIN Last administered on 12:30; Admin Dose 15 MG; Start 07/24/16 at 09:00; Stop 07/27/16 at 08:59 Ferrous Sulfate (Ferrous Sulfate (Ec)) 325 mg TID PO Last administered on 12:29; Admin Dose 325 MG; Start 07/24/16 at 21:00 Acetaminophen/ Hydrocodone Bitart ([place] (5/325)) 1 tab Q4H PRN PO PAIN LEVEL 4 -6; Start 07/25/16 at 08:30 Hydromorphone HCl (Dilaudid) 0.5 mg Q4H PRN IV SEVERE PAIN Last administered on 07/25/16 10:50; Admin Dose 0.5 MG; Start 07/25/16 at 08:30 Acetaminophen/ Hydrocodone Bitart ([place] (5/325)) 2 tab Q4H PRN PO PAIN LEVEL 4 -6; Start 07/25/16 at 09:00 DAVID REYES Jul 25, 2016 16:26
[2016-07-25 20:37] VITALS: BP 156/73; RESP 20
[2016-07-25] MEDS ORDERED: VITAMIN A & D 5 GM OINT PACKET TOP ONE ×2 (20:40→22:19)
[2016-07-26] MEDS: KETOROLAC 15 MG INJ IV PRN (05:09)
[2016-07-26 06:25] LABS: ADD SCAN DIFF NO
[2016-07-26 06:30] LABS: BASOPHILS % 0.3 % (0.0-2.0); EOSINOPHILS # 0.3 10^3/ul (0.0-0.5); EOSINOPHILS % 4.6 % (0.0-7.0); HEMATOCRIT 32.9 % (37.0-47.0); HEMOGLOBIN 10.3 g/dl (12.0-16.0); LYMPHOCYTES # 1.7 10^3/ul (0.8-2.9); LYMPHOCYTES % 24.9 % (15.0-51.0); MEAN CORPUSCULAR HEMOGLOBIN 27.4 pg (29.0-33.0); MEAN CORPUSCULAR HGB CONC 31.3 g/dl (32.0-37.0); MEAN CORPUSCULAR VOLUME 87.5 fl (82.0-101.0); MEAN PLATELET VOLUME 9.7 fl (7.4-10.4); MONOCYTE # 0.6 10^3/ul (0.3-0.9); NEUTROPHIL # 4.2 10^3/ul (1.6-7.5); NEUTROPHILS % 60.9 % (39.0-77.0); PLATELET COUNT 372 10^3/UL (140-415); RED BLOOD COUNT 3.76 10^6/ul (4.20-5.40); RED CELL DISTRIBUTION WIDTH 16.5 % (11.5-14.5); WHITE BLOOD COUNT 6.9 10^3/ul (4.8-10.8)
[2016-07-26 06:48] LABS: CALCIUM 8.5 mg/dl (8.4-10.2); CREATININE 0.56 mg/dl (0.44-1.00); POTASSIUM 3.2 mmol/L (3.5-5.1)
[2016-07-26] MEDS ORDERED: POTASSIUM CHLORIDE (SR) 20 MEQ TAB PO STA (07:05)
[2016-07-26 08:05] VITALS: BP 138/73; RESP 15
[2016-07-26] MEDS: FERROUS SULFATE (EC) 325 MG TAB PO SCH ×2 (08:31→12:36)
--- NOTE | 2016-07-26 08:33 | PDOCDIS ---
Discharge Instructions DIAGNOSIS Discharge Diagnosis: Rectal Prolapse s/p abdominal rectopexy, sigmoid resection CONDITION Patient Condition: Good HOME CARE INSTRUCTIONS: Diet Instructions: RegularSpecial Diet: No uncooked fruits or vegetables ACTIVITY: Activity Restrictions: Avoid heavy lifting Do not Drive Bathing Restrictions: Shower FOLLOW UP/APPOINTMENTS Appointments F/U with Dr. Hopkins in ~ 1 week. [phone]. OTHER ORDERS: Other Orders: Take at least 2 long walks per day JOSE R HOPKINS M.D. Jul 26, 2016 08:33
[2016-07-26] MEDS ORDERED: HYDR-3498 PO (08:34)
[2016-07-26] MEDS ORDERED: KETO15VI18 PO (08:35)
[2016-07-26] MEDS: INSULIN ASPART [NOVOLOG] 3 ML PEN SC SCH ×2 (08:35→11:40)
--- NOTE | 2016-07-26 08:40 | DS ---
Date/Time of Note Date/Time of Note DATE: 07/26/16 TIME: 08:36 Discharge Summary Admission/Discharge Info Admit Date/Time Jul 23, 2016 at 14:43 Discharge Date/Time Final Diagnosis Rectal Prolapse Patient Condition: Good Consults Internal Medicine Procedures Abdominal rectopexy, sigmoid resection Hx of Present Illness 55YO Woman h/o rectal prolapse. Hospital Course 56YO Woman h/o rectal prolapse had abdominal rectopexy, sigmoid resection on . Postop, pt did well, diet was advanced, browne removed and pt voided. Is passing gas, some loose stool. Labs OK, somewhat anemic but likely due to chronic prolapse and IVF. No fevers throughout course. Pt ambulating well. Today is POD3. Pt is ambulatory, tolerating diet, pain is reasonably well controlled. Plan is to go home with family. No heavy lifting or driving. To call if F/C/abdominal distention/bilious emesis/erythema and induration at wound. F/U with me in one week. May start metformin at home after eating regular meal. Wrote Rxs for Toradol and [place]. Pt and family agree with plan. Home Meds Reported Medications Promethazine Hcl* (Promethazine Hcl* Syrup) 6.25 Mg/5 Ml Syrup, 6.25 MG PO Q4 Y for COUGH, ML 07/23/16 Metformin Hcl* (Metformin Hcl*) 500 Mg Tablet, 500 MG PO WITH BREAKFAST DINNE, # 30 TAB 07/23/16 Follow-up Plan With me in one week. Pending Labs Laboratory Tests Test 07/25/16 11:53 07/25/16 17:00 07/25/16 20:56 07/26/16 05:20 Bedside Glucose 157mg/dL (70-220) 84mg/dL (70-220) 114mg/dL (70-220) White Blood Count 6.910^3/ul (4.8-10.8) Red Blood Count 3.7610^6/ul (4.20-5.40) Hemoglobin 10.3g/dl (12.0-16.0) Hematocrit 32.9% (37.0-47.0) Mean Corpuscular Volume 87.5fl (82.0-101.0) Mean Corpuscular Hemoglobin 27.4pg (29.0-33.0) Mean Corpuscular Hemoglobin Concent 31.3g/dl (32.0-37.0) Red Cell Distribution Width 16.5% (11.5-14.5) Platelet Count 52569^3/UL (140-415) Mean Platelet Volume 9.7fl (7.4-10.4) Neutrophils % 60.9% (39.0-77.0) Lymphocytes % 24.9% (15.0-51.0) Monocytes % 9.0% (0.0-11.0) Eosinophils % 4.6% (0.0-7.0) Basophils % 0.3% (0.0-2.0) Nucleated Red Blood Cells % 0.0/100WBC (0.0-0.0) Neutrophils # 4.210^3/ul (1.6-7.5) Lymphocytes # 1.710^3/ul (0.8-2.9) Monocytes # 0.610^3/ul (0.3-0.9) Eosinophils # 0.310^3/ul (0.0-0.5) Basophils # 0.010^3/ul (0.0-0.1) Nucleated Red Blood Cells # 0.010^3/ul (0.0-0.0) Sodium Level 137mmol/L (135-144) Potassium Level 3.2mmol/L (3.5-5.1) Chloride Level 104mmol/L (97-110) Carbon Dioxide Level 27mmol/L (21-31) Anion Gap 9 (8-16) Blood Urea Nitrogen 7mg/dl (7-20) Creatinine 0.56mg/dl (0.44-1.00) Glucose Level 98mg/dl (70-220) Calcium Level 8.5mg/dl (8.4-10.2) Test 07/26/16 08:30 Bedside Glucose 145mg/dL (70-220) JOSE R HOPKINS M.D. Jul 26, 2016 08:40
[2016-07-26] MEDS ORDERED: HYDR-906 PO (13:42)
--- NOTE | 2016-07-26 15:09 | PN ---
Date/Time of Note Date/Time of Note DATE: 07/26/16 TIME: 15:08 Assessment/Plan VTE Prophylaxis VTE Prophylaxis Intervention: SCD's Lines/Catheters IV C[facility] Type [facility] [place] Urinary Cath still in place: No Assessment/Plan Chief Complaint/Hosp Course Assessment and plan 1. Rectal prolapse status post sigmoid resection. Continue postop care. Analgesics as needed. tolerating diet well 2. Diabetes. Continue insulin regimen. Adjust as needed 3. History of asthma. No active bronchospasm at this time. Bronchodilators as needed. stable 4. Hypokalemia. Will monitor and replete as needed 5. Iron deficiency anemia. Continue on iron supplement Disposition and plan: Continue analgesics. Appears better. plan for dc today Discussed plan of care with Dr. Sykes Problems: Subjective 24 Hr Interval Summary Free Text/Dictation comfortable. no specific complaints Exam/Review of Systems Vital Signs Vitals Vital Signs Date Time Temp Pulse Resp B/P Pulse Ox O2 Delivery O2 Flow Rate FiO2 07/26/16 08:05 98.3 71 15 138/73 99 07/24/16 00:05 Nasal Cannula 1.0 Intake and Output 07/25/16 07/25/16 07/26/16 15:00 23:00 07:00 Intake Total 150 ml 900 ml Output Total 2100 ml Balance 150 ml -1200 ml Exam Constitutional: alert, oriented Head: normocephalic Eyes: nl conjunctiva Neck: non-tender, supple Respiratory: normal air movement Cardiovascular: regular rate and rhythm Gastrointestinal: soft, tender (minimal) Extremities: No edema Neurological: PROCESS STRIPPER II-XII intact, nl mental status Skin: nl turgor, rash or lesions Results Result Diagram: 07/26/16 0520 07/26/16 0520 Results 24 hrs Laboratory Tests Test 07/25/16 17:00 07/25/16 20:56 07/26/16 05:20 07/26/16 08:30 Bedside Glucose 84 114 145 White Blood Count 6.9 Red Blood Count 3.76 L Hemoglobin 10.3 L Hematocrit 32.9 L Mean Corpuscular Volume 87.5 Mean Corpuscular Hemoglobin 27.4 L Mean Corpuscular Hemoglobin Concent 31.3 L Red Cell Distribution Width 16.5 H Platelet Count 372 Mean Platelet Volume 9.7 Neutrophils % 60.9 Lymphocytes % 24.9 Monocytes % 9.0 Eosinophils % 4.6 Basophils % 0.3 Nucleated Red Blood Cells % 0.0 Neutrophils # 4.2 Lymphocytes # 1.7 Monocytes # 0.6 Eosinophils # 0.3 Basophils # 0.0 Nucleated Red Blood Cells # 0.0 Sodium Level 137 Potassium Level 3.2 L Chloride Level 104 Carbon Dioxide Level 27 Anion Gap 9 Blood Urea Nitrogen 7 Creatinine 0.56 Glucose Level 98 Calcium Level 8.5 Test 07/26/16 12:31 Bedside Glucose 125 Medications Medications Current Medications Diphenhydramine HCl (Benadryl) 25 mg Q6H PRN IV ITCHING Last administered on 23:53; Admin Dose 25 MG; Start 07/23/16 at 19:00 Ondansetron HCl (Zofran Inj) 4 mg Q6H PRN IV NAUSEA AND/OR VOMITING; Start at 19:00 Phenol (Cepastat Lozenge) 1 lozenge PRN PRN MT SORE THROAT; Start 07/23/16 at 19:00 Diagnostic Test (Pha) (Accu-Chek) 1 ea 02 XX Last administered on 07/25/16 08: 25; Admin Dose 1 EA; Start 07/24/16 at 02:00 Miscellaneous Information 1 ea NOTE XX ; Start 07/23/16 at 20:00 Glucose (Glutose) 15 gm Q15M PRN PO DECREASED GLUCOSE; Start 07/23/16 at 20:00 Glucose (Glutose) 22.5 gm Q15M PRN PO DECREASED GLUCOSE; Start 07/23/16 at 20: 00 Dextrose (D50w Syringe) 25 ml Q15M PRN IV DECREASED GLUCOSE; Start 07/23/16 at 20:00 Dextrose (D50w Syringe) 50 ml Q15M PRN IV DECREASED GLUCOSE; Start 07/23/16 at 20:00 Glucagon (Glucagen) 1 mg Q15M PRN IM DECREASED GLUCOSE; Start 07/23/16 at 20:00 Glucose (Glutose) 15 gm Q15M PRN BUCCAL DECREASED GLUCOSE; Start 07/23/16 at 20 :00 Ketorolac Tromethamine (Toradol) 15 mg Q6H PRN IV PAIN Last administered on 05:09; Admin Dose 15 MG; Start 07/24/16 at 09:00; Stop 07/27/16 at 08:59 Ferrous Sulfate (Ferrous Sulfate (Ec)) 325 mg TID PO Last administered on 12:36; Admin Dose 325 MG; Start 07/24/16 at 21:00 Acetaminophen/ Hydrocodone Bitart ([place] (5/325)) 1 tab Q4H PRN PO PAIN LEVEL 4 -6 Last administered on 07/26/16 12:37; Admin Dose 1 TAB; Start 07/25/16 at 08: 30 Hydromorphone HCl (Dilaudid) 0.5 mg Q4H PRN IV SEVERE PAIN Last administered on 07/25/16 10:50; Admin Dose 0.5 MG; Start 07/25/16 at 08:30 Acetaminophen/ Hydrocodone Bitart ([place] (5/325)) 2 tab Q4H PRN PO PAIN LEVEL 4 -6; Start 07/25/16 at 09:00 DAVID REYES Jul 26, 2016 15:09
== END 2016-07-26 15:30 | disposition home or self-care (01) | DRG 330 ==
LOC: REC 07-23 14:43 → MS1 07-23 21:23
PROVIDERS: ADMIT Surgery; ATTEND Surgery
PROC: 0DBN0ZZ Excision of Sigmoid Colon, Open Approach (ICD-10-PCS; 2016-07-23)
PROC: 0DJD8ZZ Inspection of Lower Intestinal Tract, Via Natural or Artificial Opening Endoscopic (ICD-10-PCS; 2016-07-23)
PROC: 0DSP0ZZ Reposition Rectum, Open Approach (ICD-10-PCS; principal; 2016-07-23 16:30)
DX: K62.3 Rectal prolapse (principal); Q43.8 Other specified congenital malformations of intestine; I10 Essential (primary) hypertension; E11.9 Type 2 diabetes mellitus without complications; D64.9 Anemia, unspecified; E05.90 Thyrotoxicosis, unspecified without thyrotoxic crisis or storm; J45.909 Unspecified asthma, uncomplicated; D72.829 Elevated white blood cell count, unspecified; E87.6 Hypokalemia; Z90.710 Acquired absence of both cervix and uterus
CPT/HCPCS: 80048; 81001; 81003; 82728; 82962; 83540; 85025; 86850; 86900; 86901; 87075; 87086; 88307; J0131; J0330; J0690; J1170; J1200; J1815; J1885; J2405; J2710; J2795; J3010; J3480; J7120

== ENCOUNTER 2018-01-14 11:07 | Inpatient (IN) | END 2018-01-15 16:24 | disposition home or self-care (01) | DRG 395 ==